=== PATIENT | male | born 1960 | race Caucasian/White ===

== ENCOUNTER 2020-03-30 20:56 | Emergency (ER) | payer BC, OTHER ==
[2020-03-30] MEDS ORDERED: Ondansetron PF 4 MG/2 ML Vial ONE (21:29)
[2020-03-30 21:30] LABS: #Basophils 0.1 thou/uL (0.0-0.2); #Lymphocytes 1.9 thou/uL (1.20-3.40); #Monocytes 1.1 thou/uL (0.11-0.59); #Neutrophils 8.8 thou/uL (1.40-6.50); %Basophils 0.8 % (0.0-1.0); %Eosinophils 0.4 % (0.0-10.0); %Lymphocytes 16.2 % (21.0-51.0); %Monocytes 8.9 % (0.0-10.0); %Neutrophils 73.8 % (42.0-75.0); Hemoglobin 15.1 g/dL (14.0-18.0); Mean Corpuscular HGB CONC 31.4 g/dL (32.0-36.0); Mean Corpuscular Hemoglobin 27.9 pg (27.0-31.0); Mean Corpuscular Volume 88.8 fL (78.0-98.0); Mean Platelet Volume 8.3 fL (7.4-10.4); Platelet Count 209 thou/uL (130-400); RBC Distribution Width 12.3 % (11.5-14.5); Red Blood Cell (RBC) Count 5.41 mill/uL (4.70-6.10); White Blood Cell (WBC) Count 11.9 thou/uL (4.8-10.8)
[2020-03-30 21:45] LABS: ALT (SGPT) 29 U/L (8-55); AST (SGOT) 18 U/L (5-34); Albumin 3.9 g/dL (3.4-4.8); Alkaline Phosphatase 99 U/L (40-110); Anion Gap 13 mmol/L (10-20); BUN (Urea Nitrogen) 12 mg/dL (8.4-25.7); Bilirubin, Total 0.7 mg/dL (0.2-1.2); Calc. Creatinine Clearance 0 mL/min (70-130); Calcium 8.5 mg/dL (7.8-10.44); Carbon Dioxide 21 mmol/L (23-31); Chloride 100 mmol/L (98-107); Estimated GFR-MDRD 66; Globulin 3.3 g/dL (2.4-3.5); Glucose 283 mg/dL (80-115); Lipase 21 U/L (8-78); Potassium 3.9 mmol/L (3.5-5.1); Protein, Total 7.2 g/dL (5.8-8.1); Sodium 130 mmol/L (136-145)
[2020-03-30] MEDS ORDERED: Sodium Chloride 0.9% 1,000 ML ONE ×2 (21:49→22:56)
[2020-03-30 22:39] LABS: Bilirubin Negative (Negative); Blood, Urine Negative (Negative); Clarity Clear (Clear); Glucose, Urine (Dipstick) 500 mg/dL (Negative); Leukocyte Negative (Negative); Nitrite Negative (Negative); Protein, Urine (Dipstick) 100 mg/dL (Neg-Trace); Urobilinogen 0.2 mg/dL (Less than 2)
[2020-03-30 22:47] LABS: Bacteria/HPF Rare-Few HPF (None Seen); RBC/HPF 0-3 HPF (0-3); Squamous Epithelial 0-3 HPF (0-3); WBC/HPF None Seen HPF (0-3)
--- NOTE | 2020-03-30 22:55 | RAD ---
XR Chest 1 View Portable History: Dyspnea Comparison: Exam 2016 Findings: Lungs are clear. No pneumothorax. No effusion. Cardiac silhouette and mediastinal contours are similar. No acute osseous abnormality. Impression: No acute intrathoracic abnormality.
[2020-03-31] MEDS ORDERED: Ondansetron ODT 4 MG TAB ONE (00:11)
[2020-04-01 12:13] LABS: SARS-CoV-2 MS2 Positive; SARS-CoV-2 N Gene Negative; SARS-CoV-2 S Gene Negative; SARS-CoV-2 orf1ab Negative
[2020-04-02 15:13] LABS: Routine O & P Final report (.)
== END 2020-03-31 00:05 | disposition home or self-care (01) ==
LOC: NAV ERS 20:56
DX: E87.1 Hypo-osmolality and hyponatremia (principal); E86.0 Dehydration; R11.2 Nausea with vomiting, unspecified; R19.7 Diarrhea, unspecified; E11.9 Type 2 diabetes mellitus without complications; I10 Essential (primary) hypertension
CPT/HCPCS: 71045; 80053; 81003; 81015; 83605; 83690; 83880; 84484; 85025; 87045; 87046; 87177; 87324; 87427; 87449; 87635; 87798; 93005; 94760; 96361; 96374; J2405; J7050; Q0162; U0003

== ENCOUNTER 2022-11-16 15:50 | Outpatient (CLI) | payer BC | END 2022-11-16 15:51 | disposition home or self-care (01) | LOC: NAV RAD 15:50 | PROVIDERS: ATTEND Family Medicine | DX: M70.51 Other bursitis of knee, right knee (principal); M17.11 Unilateral primary osteoarthritis, right knee ==